=== PATIENT | female | born 1975 | race African-American/Black ===

== ENCOUNTER 2019-08-26 19:25 | Emergency (ER) | payer MEDICAID, OTHER ==
[~2019-08-26] VITALS: Ht 167.6 cm; Wt 68.0 kg
[~2019-08-26 19:25] MED LIST: DIPH25CA83
[2019-08-26] MEDS ORDERED: SODIUM CHLORIDE 0.9% 1,000 ML IV ONE (20:03)
[2019-08-26] MEDS ORDERED: ONDANSETRON HCL 4MG/2ML INJ IV ONE (20:15)
[2019-08-26] MEDS ORDERED: MORPHINE SULFATE 4 MG/ML CPJ (NOT FOR IM USE) IV ONE (20:15)
[2019-08-26 20:32] LABS: EOSINOPHILS % 4.4 % (0.0-5.0); HEMATOCRIT. 41.4 % (36.0-48.0); HEMOGLOBIN. 14.1 g/dL (12.0-16.0); LYMPHOCYTES % 55.6 % (20.0-50.0); MEAN CORPUSCULAR HEMOGLOBIN 31.6 pg (28.0-32.0); MEAN CORPUSCULAR VOLUME 92.9 fL (81.0-99.0); MEAN PLATELET VOLUME 10.1 fl (7.4-10.4); MONOCYTES % 7.2 % (2.0-8.0); NEUTROPHILS % 31.8 % (40.0-76.0); PLATELET 219 x1000/uL (130-400); RED BLOOD CELL COUNT 4.46 mill/uL (4.2-5.4); RED CELL DISTRIBUTION WIDTH 14.5 % (11.6-14.6)
[2019-08-26 20:34] LABS: CLARITY URINE CLOUDY (CLEAR); COLOR URINE DARK YELLOW (YELLOW); KETONES URINE TRACE (NEGATIVE); LEUKOCYTE ESTERASE URINE TRACE (NEGATIVE); NITRITE URINE NEGATIVE (NEGATIVE); OCCULT BLOOD URINE 2+ (NEGATIVE); PH URINE 5.5 (4.5-8.0); PROTEIN URINE NEGATIVE (NEGATIVE)
[2019-08-26 20:37] LABS: CHLORIDE 111 mEq/L (98-107); INR 0.9; PROTHROMBIN TIME 10.2 sec (9.6-11.0)
[2019-08-26 20:47] LABS: B-HCG QUANTITATIVE < 1 mIU/mL (<3)
[2019-08-26 23:45] VITALS: BP 123/79
[2019-08-26] MEDS ORDERED: MORPHINE SULFATE 4 MG/ML CPJ (NOT FOR IM USE) IV NR (23:45)
== END 2019-08-27 00:14 | disposition home or self-care (01) ==
LOC: ER 19:25
DX: O02.1 Missed abortion (principal); R11.2 Nausea with vomiting, unspecified; Z85.72 Personal history of non-Hodgkin lymphomas
CPT/HCPCS: 36415; 76830; 76856; 80053; 81003; 81025; 84702; 85025; 85610; 86850; 86900; 86901; 96361; 96374; 96375; 96376; 99284; J2270; J2405; J7030